=== PATIENT | female | born 1960 | race Caucasian/White ===

== ENCOUNTER 2021-04-26 11:35 | Inpatient (IN) ==
[~2021-04-26 11:35] MED LIST: IVERMECTIN 3 MG TABLET PO SCH
[2021-04-26 12:45] LABS: Basophils % 0.3 % (0.0-0.8); Hematocrit 43.8 VOL% (35.7-47.0); Hemoglobin 14.8 GM/DL (12.0-16.0); Immature Granulocytes % 0.5 %; Immature Granulocytes Absolute 0.03 #; Lymphocytes % 14.8 % (21.3-54.2); Mean Corpuscular HGB Conc 33.8 GM/DL (32-36); Mean Platelet Volume 10.8 FL (9.6-12.0); Monocytes % 7.8 % (1.7-12.7); Neutrophils % 76.6 % (38.7-73.9); Platelet Count 273 T/CUMM (130-400); Red Blood Count 4.66 MC/CUMM (3.8-5.5); Red Cell Distribution Width 12.3 % (9.3-17.3); White Blood Count 6.4 T/CUMM (4-12)
[2021-04-26 13:09] LABS: Band Neutrophils 2 % (0-10); Lymphocytes 15 % (20-55); Platelet Estimate Normal; Polychromasia Slight; Segmented Neutrophils 71 % (50-85); Total Cells Counted 100
[2021-04-26 13:10] LABS: Ovalocytes Few
[2021-04-26 13:19] LABS: Albumin 3.4 G/DL (3.4-5.0); Bilirubin,Total 0.4 MG/DL (0.20-1.00); Calcium 9.3 MG/DL (8.5-10.1); Ferritin 516.2 ng/ml (8-252); Osmolality,Calculated 269.2 MOS/KG (273-304); Potassium 3.5 MMOL/L (3.5-5.1); Total Protein 8.2 G/DL (6.4-8.2)
[2021-04-26] MEDS ORDERED: GLUCAGON 1 MG VIAL IM PRN (14:31)
[2021-04-26] MEDS ORDERED: ONDANSETRON 4 MG/2 ML VIAL IV PRN (14:31)
[2021-04-26] MEDS ORDERED: ACETAMINOPHEN 325 MG TABLET PO PRN (14:31)
[2021-04-26] MEDS ORDERED: DEXTROSE 50% 25 GM/50 ML VIAL IV PRN (14:31)
[2021-04-26] MEDS ORDERED: DOCUSATE SODIUM 100 MG CAPSULE PO PRN (14:31)
[2021-04-26] MEDS ORDERED: hydrALAZINE 20 MG/1 ML VIAL IV PRN (14:31)
[2021-04-26] MEDS: DEXAMETHASONE 4 MG/1 ML VIAL IV SCH (14:35)
[2021-04-26] MEDS ORDERED: AZITHROMYCIN INJ 500 MG in SODIUM CHLORIDE 0.9% 250 ML IV ONE (14:36)
[2021-04-26 14:56] LABS: PT Patient Result 11.1 SECS (10.5-12.0)
[2021-04-26] MEDS: ENOXAPARIN 40 MG/0.4 ML SYRINGE SUBCUT SCH (14:57)
[2021-04-26] MEDS: cefTRIAXone 1,000 MG in SODIUM CHLORIDE 0.9% 100 ML IV SCH (16:24)
[2021-04-26] MEDS: guaiFENesin/DM ER 600-30 MG TABLET PO SCH (21:43)
[2021-04-26] MEDS: FAMOTIDINE 20 MG TABLET PO SCH (21:43)
[2021-04-26] MEDS: ASCORBIC ACID 500 MG TABLET PO SCH (21:43)
[2021-04-27 05:04] LABS: Basophils % 0.2 % (0.0-0.8); Hematocrit 40.8 VOL% (35.7-47.0); Hemoglobin 13.7 GM/DL (12.0-16.0); Immature Granulocytes % 0.5 %; Immature Granulocytes Absolute 0.02 #; Lymphocytes # 1.1 10*3/uL (1.4-4.0); Lymphocytes % 26.4 % (21.3-54.2); Mean Corpuscular HGB Conc 33.6 GM/DL (32-36); Mean Corpuscular Volume 93.2 FL (87-102); Mean Platelet Volume 10.8 FL (9.6-12.0); Monocytes % 10.2 % (1.7-12.7); Neutrophils % 62.7 % (38.7-73.9); Platelet Count 287 T/CUMM (130-400); Red Blood Count 4.38 MC/CUMM (3.8-5.5); Red Cell Distribution Width 12.1 % (9.3-17.3); White Blood Count 4.1 T/CUMM (4-12)
[2021-04-27 05:33] LABS: Hypochromasia 1+; Microcytosis Slight; Platelet Estimate Normal
[2021-04-27 05:41] LABS: Ferritin 536.1 ng/ml (8-252)
[2021-04-27 05:46] LABS: Calcium 8.8 MG/DL (8.5-10.1); Osmolality,Calculated 272.2 MOS/KG (273-304); Potassium 3.6 MMOL/L (3.5-5.1); Risk Ratio 4.11; Thyroid Stimulating Hormone 0.427 uIU/ml (0.358-3.74)
[2021-04-27] MEDS: ASCORBIC ACID 500 MG TABLET PO SCH ×2 (10:04→21:25)
[2021-04-27] MEDS: guaiFENesin/DM ER 600-30 MG TABLET PO SCH ×2 (10:04→21:25)
[2021-04-27] MEDS: FAMOTIDINE 20 MG TABLET PO SCH ×2 (10:04→21:25)
[2021-04-27] MEDS: CHOLECALCIFEROL 1,000 UNIT TABLET PO SCH (10:04)
[2021-04-27] MEDS: ZINC GLUCONATE 50 MG TABLET PO SCH (10:04)
[2021-04-27] MEDS: DEXAMETHASONE 4 MG/1 ML VIAL IV SCH (10:05)
[2021-04-27] MEDS ORDERED: REMDESIVIR 200 MG in SODIUM CHLORIDE 0.9% 210 ML IV ONE (11:00)
[2021-04-27] MEDS: ENOXAPARIN 40 MG/0.4 ML SYRINGE SUBCUT SCH (15:24)
[2021-04-27] MEDS: cefTRIAXone 1,000 MG in SODIUM CHLORIDE 0.9% 100 ML IV SCH (15:24)
[2021-04-27] MEDS: clonazePAM 0.5 MG TABLET PO PRN (21:30)
[2021-04-28 03:50] LABS: Allen Test Positive; Pt O2 Delivery Device Other
[2021-04-28 03:52] LABS: ABG Base Excess 5.4 MMOL/L (-2.5-2.5); ABG HCO3 29.1 MMOL/L (20-26); ABG Oxygen Saturation 90.7 % (95-100); ABG PCO2 36.9 MM HG (35-48); ABG PH 7.498 (7.35-7.45); ABG TCO2 24.5 MMOL/L (23-27)
[2021-04-28 05:15] LABS: Basophils % 0.1 % (0.0-0.8); Hematocrit 40.1 VOL% (35.7-47.0); Hemoglobin 13.7 GM/DL (12.0-16.0); Immature Granulocytes % 0.8 %; Lymphocytes # 1.7 10*3/uL (1.4-4.0); Lymphocytes % 14.2 % (21.3-54.2); Mean Corpuscular HGB Conc 34.2 GM/DL (32-36); Mean Corpuscular Volume 92.6 FL (87-102); Mean Platelet Volume 11.2 FL (9.6-12.0); Monocytes % 8.4 % (1.7-12.7); Neutrophils % 76.5 % (38.7-73.9); Platelet Count 358 T/CUMM (130-400); Red Blood Count 4.33 MC/CUMM (3.8-5.5); Red Cell Distribution Width 11.9 % (9.3-17.3); White Blood Count 11.8 T/CUMM (4-12)
[2021-04-28 05:37] LABS: Calcium 8.9 MG/DL (8.5-10.1); Osmolality,Calculated 273.4 MOS/KG (273-304); Potassium 3.2 MMOL/L (3.5-5.1)
[2021-04-28 05:41] LABS: Ferritin 513.3 ng/ml (8-252)
[2021-04-28] MEDS ORDERED: POTASSIUM CHLORIDE 20 MEQ TABLET PO ONE (07:05)
[2021-04-28] MEDS: ASCORBIC ACID 500 MG TABLET PO SCH ×2 (10:48→20:44)
[2021-04-28] MEDS: ZINC GLUCONATE 50 MG TABLET PO SCH (10:48)
[2021-04-28] MEDS: FAMOTIDINE 20 MG TABLET PO SCH ×2 (10:48→20:44)
[2021-04-28] MEDS: CHOLECALCIFEROL 1,000 UNIT TABLET PO SCH (10:48)
[2021-04-28] MEDS: guaiFENesin/DM ER 600-30 MG TABLET PO SCH ×2 (10:49→20:44)
[2021-04-28] MEDS: DEXAMETHASONE 4 MG/1 ML VIAL IV SCH (10:52)
[2021-04-28] MEDS: REMDESIVIR 100 MG in SODIUM CHLORIDE 0.9% 100 ML IV SCH (11:47)
[2021-04-28] MEDS: cefTRIAXone 1,000 MG in SODIUM CHLORIDE 0.9% 100 ML IV SCH (15:37)
[2021-04-28] MEDS: ENOXAPARIN 40 MG/0.4 ML SYRINGE SUBCUT SCH (15:38)
[2021-04-28] MEDS: clonazePAM 0.5 MG TABLET PO PRN ×2 (15:41→22:27)
[2021-04-29 05:05] LABS: Basophils % 0.2 % (0.0-0.8); Hematocrit 40.5 VOL% (35.7-47.0); Immature Granulocytes % 0.8 %; Immature Granulocytes Absolute 0.09 #; Lymphocytes # 1.8 10*3/uL (1.4-4.0); Lymphocytes % 14.9 % (21.3-54.2); Mean Corpuscular HGB Conc 34.6 GM/DL (32-36); Mean Corpuscular Volume 93.5 FL (87-102); Mean Platelet Volume 10.7 FL (9.6-12.0); Neutrophils % 73.1 % (38.7-73.9); Platelet Count 318 T/CUMM (130-400); Red Blood Count 4.33 MC/CUMM (3.8-5.5); Red Cell Distribution Width 12.2 % (9.3-17.3); White Blood Count 11.9 T/CUMM (4-12)
[2021-04-29 05:34] LABS: Calcium 8.9 MG/DL (8.5-10.1); Osmolality,Calculated 284.5 MOS/KG (273-304); Potassium 3.6 MMOL/L (3.5-5.1)
[2021-04-29 05:40] LABS: Ferritin 449.1 ng/ml (8-252)
[2021-04-29] MEDS: DEXAMETHASONE 4 MG/1 ML VIAL IV SCH (08:29)
[2021-04-29] MEDS: FAMOTIDINE 20 MG TABLET PO SCH ×2 (08:30→21:30)
[2021-04-29] MEDS: ZINC GLUCONATE 50 MG TABLET PO SCH (08:30)
[2021-04-29] MEDS: AZITHROMYCIN 250 MG TABLET PO SCH (08:30)
[2021-04-29] MEDS: CHOLECALCIFEROL 1,000 UNIT TABLET PO SCH (08:30)
[2021-04-29] MEDS: ASCORBIC ACID 500 MG TABLET PO SCH ×2 (08:30→21:30)
[2021-04-29] MEDS: guaiFENesin/DM ER 600-30 MG TABLET PO SCH ×2 (08:30→21:30)
[2021-04-29] MEDS: REMDESIVIR 100 MG in SODIUM CHLORIDE 0.9% 100 ML IV SCH (09:33)
[2021-04-29] MEDS: ENOXAPARIN 40 MG/0.4 ML SYRINGE SUBCUT SCH (14:59)
[2021-04-29] MEDS: cefTRIAXone 1,000 MG in SODIUM CHLORIDE 0.9% 100 ML IV SCH (15:00)
[2021-04-29] MEDS: clonazePAM 0.5 MG TABLET PO PRN (18:32)
[2021-04-29] MEDS ORDERED: SODIUM CHLORIDE 0.65% NASAL SPRAY 45 ML BOTTLE BOTH NARES PRN (20:40)
[2021-04-30 06:06] LABS: Basophils % 0.2 % (0.0-0.8); Hematocrit 38.7 VOL% (35.7-47.0); Immature Granulocytes % 0.9 %; Lymphocytes % 17.6 % (21.3-54.2); Mean Corpuscular HGB Conc 33.6 GM/DL (32-36); Mean Corpuscular Volume 95.3 FL (87-102); Mean Platelet Volume 11.3 FL (9.6-12.0); Monocytes % 10.3 % (1.7-12.7); Platelet Count 412 T/CUMM (130-400); Red Blood Count 4.06 MC/CUMM (3.8-5.5); Red Cell Distribution Width 12.1 % (9.3-17.3); White Blood Count 11.6 T/CUMM (4-12)
[2021-04-30 06:28] LABS: Hypochromasia Slight; Lymphocytes 14 % (20-55); Microcytosis Slight; Platelet Estimate Adequate; Segmented Neutrophils 80 % (50-85); Total Cells Counted 100
[2021-04-30 06:32] LABS: Albumin 2.4 G/DL (3.4-5.0); Bilirubin,Total 0.4 MG/DL (0.20-1.00); Calcium 8.7 MG/DL (8.5-10.1); Ferritin 375.1 ng/ml (8-252); Osmolality,Calculated 281.5 MOS/KG (273-304); Potassium 3.6 MMOL/L (3.5-5.1); Total Protein 6.2 G/DL (6.4-8.2)
[2021-04-30 07:32] LABS: Sedimentation Rate-Westergren 69 MM/HR (0-30)
[2021-04-30] MEDS: ASCORBIC ACID 500 MG TABLET PO SCH ×2 (08:57→21:09)
[2021-04-30] MEDS: AZITHROMYCIN 250 MG TABLET PO SCH (08:57)
[2021-04-30] MEDS: guaiFENesin/DM ER 600-30 MG TABLET PO SCH ×2 (08:58→21:09)
[2021-04-30] MEDS: ZINC GLUCONATE 50 MG TABLET PO SCH (08:58)
[2021-04-30] MEDS: FAMOTIDINE 20 MG TABLET PO SCH ×2 (08:58→21:08)
[2021-04-30] MEDS: CHOLECALCIFEROL 1,000 UNIT TABLET PO SCH (08:58)
[2021-04-30] MEDS: DEXAMETHASONE 4 MG/1 ML VIAL IV SCH (08:58)
[2021-04-30] MEDS: REMDESIVIR 100 MG in SODIUM CHLORIDE 0.9% 100 ML IV SCH (12:36)
[2021-04-30] MEDS: ENOXAPARIN 40 MG/0.4 ML SYRINGE SUBCUT SCH (17:02)
[2021-04-30] MEDS: cefTRIAXone 1,000 MG in SODIUM CHLORIDE 0.9% 100 ML IV SCH (17:02)
[2021-04-30] MEDS: clonazePAM 0.5 MG TABLET PO PRN (21:08)
[2021-05-01 05:51] LABS: Basophils % 0.1 % (0.0-0.8); Hematocrit 39.8 VOL% (35.7-47.0); Hemoglobin 13.2 GM/DL (12.0-16.0); Immature Granulocytes % 0.9 %; Immature Granulocytes Absolute 0.14 #; Lymphocytes # 2.1 10*3/uL (1.4-4.0); Lymphocytes % 13.4 % (21.3-54.2); Mean Corpuscular HGB Conc 33.2 GM/DL (32-36); Mean Corpuscular Volume 94.5 FL (87-102); Mean Platelet Volume 11.3 FL (9.6-12.0); Monocytes % 8.2 % (1.7-12.7); Neutrophils % 77.4 % (38.7-73.9); Platelet Count 414 T/CUMM (130-400); Red Blood Count 4.21 MC/CUMM (3.8-5.5); Red Cell Distribution Width 11.9 % (9.3-17.3); White Blood Count 15.6 T/CUMM (4-12)
[2021-05-01 06:09] LABS: Albumin 2.1 G/DL (3.4-5.0); Bilirubin,Total 0.4 MG/DL (0.20-1.00); Calcium 8.6 MG/DL (8.5-10.1); Ferritin 357.8 ng/mL (8-252); Potassium 4.1 MMOL/L (3.5-5.1); Total Protein 6.2 G/DL (6.4-8.2)
[2021-05-01 06:13] LABS: Hypochromasia Slight
[2021-05-01 06:14] LABS: Microcytosis Slight; Platelet Estimate Increased
[2021-05-01 07:13] LABS: Sedimentation Rate-Westergren 60 MM/HR (0-30)
[2021-05-01] MEDS: CHOLECALCIFEROL 1,000 UNIT TABLET PO SCH (09:01)
[2021-05-01] MEDS: ASCORBIC ACID 500 MG TABLET PO SCH ×2 (09:02→20:36)
[2021-05-01] MEDS: AZITHROMYCIN 250 MG TABLET PO SCH (09:02)
[2021-05-01] MEDS: guaiFENesin/DM ER 600-30 MG TABLET PO SCH ×2 (09:02→20:36)
[2021-05-01] MEDS: FAMOTIDINE 20 MG TABLET PO SCH ×2 (09:02→20:36)
[2021-05-01] MEDS: DEXAMETHASONE 4 MG/1 ML VIAL IV SCH (09:02)
[2021-05-01] MEDS: ZINC GLUCONATE 50 MG TABLET PO SCH (09:02)
[2021-05-01] MEDS: clonazePAM 0.5 MG TABLET PO PRN ×2 (09:43→20:36)
[2021-05-01] MEDS: REMDESIVIR 100 MG in SODIUM CHLORIDE 0.9% 100 ML IV SCH (09:43)
[2021-05-01] MEDS: cefTRIAXone 1,000 MG in SODIUM CHLORIDE 0.9% 100 ML IV SCH (15:40)
[2021-05-01] MEDS: ENOXAPARIN 40 MG/0.4 ML SYRINGE SUBCUT SCH (15:41)
[2021-05-02] MEDS: clonazePAM 0.5 MG TABLET PO PRN ×3 (03:52→21:52)
[2021-05-02 05:54] LABS: Basophils % 0.2 % (0.0-0.8); Eosinophils % 0.1 % (0.00-10.9); Hematocrit 38.1 VOL% (35.7-47.0); Immature Granulocytes % 0.9 %; Immature Granulocytes Absolute 0.16 #; Mean Corpuscular HGB Conc 34.1 GM/DL (32-36); Mean Corpuscular Volume 93.8 FL (87-102); Monocytes % 8.2 % (1.7-12.7); Neutrophils % 79.6 % (38.7-73.9); Platelet Count 402 T/CUMM (130-400); Red Blood Count 4.06 MC/CUMM (3.8-5.5); Red Cell Distribution Width 12.1 % (9.3-17.3); White Blood Count 17.8 T/CUMM (4-12)
[2021-05-02 06:35] LABS: Albumin 2.2 G/DL (3.4-5.0); Bilirubin,Total 0.8 MG/DL (0.20-1.00); Calcium 8.6 MG/DL (8.5-10.1); Ferritin 377.1 ng/mL (8-252); Osmolality,Calculated 274.8 MOS/KG (273-304); Potassium 3.5 MMOL/L (3.5-5.1); Total Protein 6.2 G/DL (6.4-8.2)
[2021-05-02 07:45] LABS: Sedimentation Rate-Westergren 71 MM/HR (0-30)
[2021-05-02] MEDS: ASCORBIC ACID 500 MG TABLET PO SCH ×2 (08:47→21:51)
[2021-05-02] MEDS: guaiFENesin/DM ER 600-30 MG TABLET PO SCH ×2 (08:47→21:51)
[2021-05-02] MEDS: CHOLECALCIFEROL 1,000 UNIT TABLET PO SCH (08:47)
[2021-05-02] MEDS: ZINC GLUCONATE 50 MG TABLET PO SCH (08:47)
[2021-05-02] MEDS: DEXAMETHASONE 4 MG/1 ML VIAL IV SCH (08:47)
[2021-05-02] MEDS: AZITHROMYCIN 250 MG TABLET PO SCH (08:47)
[2021-05-02] MEDS: FAMOTIDINE 20 MG TABLET PO SCH ×2 (08:47→21:51)
[2021-05-02] MEDS: REMDESIVIR 100 MG in SODIUM CHLORIDE 0.9% 100 ML IV SCH (10:20)
[2021-05-02 11:19] LABS: Bacteria,Urine Occasional /HPF (Few); Bilirubin,Urine Negative (Negative); Blood, Urine Negative (Negative); Glucose,Urine (UA) >=500 mg/dL (Negative); Ketones,Urine Negative (Negative); Mucus,Urine Moderate /LPF (Occasional); Nitrite,Urine Negative (Negative); Protein,Urine Negative; RBC,Urine 3 /HPF (0-4); Squamous Epithelial Cell,Urine Occasional /HPF (0-10); Urine Appearance CLEAR (Clear); Urine Color Yellow (Yellow); Urine Specific Gravity 1.021 (1.001-1.035); Urine Urobilinogen < 2.0 EU/DL (0.2-1.0)
[2021-05-02] MEDS: ENOXAPARIN 40 MG/0.4 ML SYRINGE SUBCUT SCH (15:01)
[2021-05-02] MEDS: cefTRIAXone 1,000 MG in SODIUM CHLORIDE 0.9% 100 ML IV SCH (15:01)
[2021-05-02] MEDS: MELATONIN 3 MG TABLET PO PRN (21:52)
[2021-05-03 05:05] LABS: ABG Base Excess 2.9 MMOL/L (-2.5-2.5); ABG Oxygen Saturation 96.4 % (95-100); ABG PO2 85.7 MM HG (80-95); ABG TCO2 23.9 MMOL/L (23-27)
[2021-05-03 05:13] LABS: Basophils % 0.1 % (0.0-0.8); Eosinophils % 0.2 % (0.00-10.9); Hematocrit 38.8 VOL% (35.7-47.0); Hemoglobin 13.1 GM/DL (12.0-16.0); Immature Granulocytes % 1.1 %; Immature Granulocytes Absolute 0.21 #; Lymphocytes # 1.9 10*3/uL (1.4-4.0); Lymphocytes % 9.5 % (21.3-54.2); Mean Corpuscular HGB Conc 33.8 GM/DL (32-36); Mean Corpuscular Volume 93.3 FL (87-102); Mean Platelet Volume 11.1 FL (9.6-12.0); Monocytes % 9.1 % (1.7-12.7); Platelet Count 382 T/CUMM (130-400); Red Blood Count 4.16 MC/CUMM (3.8-5.5); Red Cell Distribution Width 12.1 % (9.3-17.3); White Blood Count 19.7 T/CUMM (4-12)
[2021-05-03 05:37] LABS: Albumin 2.1 G/DL (3.4-5.0); Bilirubin,Total 0.6 MG/DL (0.20-1.00); Calcium 8.5 MG/DL (8.5-10.1); Ferritin 388.5 ng/mL (8-252); Osmolality,Calculated 274.8 MOS/KG (273-304); Potassium 3.8 MMOL/L (3.5-5.1); Total Protein 6.1 G/DL (6.4-8.2)
[2021-05-03 06:00] LABS: Hypochromasia 1+
[2021-05-03 06:01] LABS: Microcytosis Slight; Platelet Estimate Normal
[2021-05-03 06:43] LABS: Sedimentation Rate-Westergren 66 MM/HR (0-30)
[2021-05-03] MEDS ORDERED: AZITHROMYCIN INJ 500 MG in SODIUM CHLORIDE 0.9% 250 ML IV SCH (07:30)
[2021-05-03] MEDS: DEXAMETHASONE 4 MG/1 ML VIAL IV SCH (08:16)
[2021-05-03] MEDS: FAMOTIDINE 20 MG TABLET PO SCH ×2 (08:16→21:56)
[2021-05-03] MEDS: CHOLECALCIFEROL 1,000 UNIT TABLET PO SCH (08:17)
[2021-05-03] MEDS: ZINC GLUCONATE 50 MG TABLET PO SCH (08:17)
[2021-05-03] MEDS: ASCORBIC ACID 500 MG TABLET PO SCH ×2 (08:17→21:56)
[2021-05-03] MEDS: guaiFENesin/DM ER 600-30 MG TABLET PO SCH ×2 (08:17→21:55)
[2021-05-03] MEDS: REMDESIVIR 100 MG in SODIUM CHLORIDE 0.9% 100 ML IV SCH (10:30)
[2021-05-03] MEDS: clonazePAM 0.5 MG TABLET PO PRN ×2 (15:39→21:56)
[2021-05-03] MEDS: ENOXAPARIN 40 MG/0.4 ML SYRINGE SUBCUT SCH (15:40)
[2021-05-03] MEDS: cefTRIAXone 1,000 MG in SODIUM CHLORIDE 0.9% 100 ML IV SCH (15:40)
[2021-05-03] MEDS: MELATONIN 3 MG TABLET PO PRN (21:55)
[2021-05-04 05:51] LABS: Basophils % 0.1 % (0.0-0.8); Eosinophils % 0.1 % (0.00-10.9); Hematocrit 38.1 VOL% (35.7-47.0); Hemoglobin 12.9 GM/DL (12.0-16.0); Immature Granulocytes % 1.2 %; Immature Granulocytes Absolute 0.19 #; Lymphocytes # 1.3 10*3/uL (1.4-4.0); Lymphocytes % 8.3 % (21.3-54.2); Mean Corpuscular HGB Conc 33.9 GM/DL (32-36); Mean Corpuscular Volume 94.3 FL (87-102); Monocytes % 9.5 % (1.7-12.7); Neutrophils % 80.8 % (38.7-73.9); Platelet Count 399 T/CUMM (130-400); Red Blood Count 4.04 MC/CUMM (3.8-5.5); Red Cell Distribution Width 11.9 % (9.3-17.3); White Blood Count 16.1 T/CUMM (4-12)
[2021-05-04 06:25] LABS: Albumin 2.1 G/DL (3.4-5.0); Bilirubin,Total 1.6 MG/DL (0.20-1.00); Calcium 8.4 MG/DL (8.5-10.1); Ferritin 411.9 ng/mL (8-252); Osmolality,Calculated 277.7 MOS/KG (273-304); Potassium 3.9 MMOL/L (3.5-5.1); Total Protein 5.9 G/DL (6.4-8.2)
[2021-05-04 07:12] LABS: Sedimentation Rate-Westergren 80 MM/HR (0-30)
[2021-05-04] MEDS: ZINC GLUCONATE 50 MG TABLET PO SCH (09:10)
[2021-05-04] MEDS: ASCORBIC ACID 500 MG TABLET PO SCH ×2 (09:11→20:55)
[2021-05-04] MEDS: AZITHROMYCIN 250 MG TABLET PO SCH (09:12)
[2021-05-04] MEDS: FAMOTIDINE 20 MG TABLET PO SCH ×2 (09:12→20:55)
[2021-05-04] MEDS: guaiFENesin/DM ER 600-30 MG TABLET PO SCH ×2 (09:12→20:56)
[2021-05-04] MEDS: CHOLECALCIFEROL 1,000 UNIT TABLET PO SCH (09:13)
[2021-05-04] MEDS: DEXAMETHASONE 4 MG/1 ML VIAL IV SCH (09:14)
[2021-05-04] MEDS: REMDESIVIR 100 MG in SODIUM CHLORIDE 0.9% 100 ML IV SCH (12:58)
[2021-05-04] MEDS: DESITIN 4OZ/NYSTATIN 15 GRAM MIXTURE PASTE TOP SCH ×2 (12:58→21:48)
[2021-05-04] MEDS: ENOXAPARIN 40 MG/0.4 ML SYRINGE SUBCUT SCH (14:37)
[2021-05-04] MEDS: clonazePAM 0.5 MG TABLET PO PRN (20:55)
[2021-05-05 05:49] LABS: Basophils % 0.1 % (0.0-0.8); Eosinophils % 0.2 % (0.00-10.9); Hematocrit 38.7 VOL% (35.7-47.0); Immature Granulocytes % 1.2 %; Lymphocytes # 1.6 10*3/uL (1.4-4.0); Lymphocytes % 9.8 % (21.3-54.2); Mean Corpuscular HGB Conc 33.6 GM/DL (32-36); Mean Corpuscular Volume 94.4 FL (87-102); Mean Platelet Volume 11.1 FL (9.6-12.0); Monocytes % 10.4 % (1.7-12.7); Neutrophils % 78.3 % (38.7-73.9); Platelet Count 399 T/CUMM (130-400); Red Cell Distribution Width 11.9 % (9.3-17.3); White Blood Count 16.6 T/CUMM (4-12)
[2021-05-05 06:15] LABS: Albumin 2.2 G/DL (3.4-5.0); Bilirubin,Total 0.9 MG/DL (0.20-1.00); Calcium 8.8 MG/DL (8.5-10.1); Ferritin 377.7 ng/mL (8-252); Osmolality,Calculated 274.8 MOS/KG (273-304); Potassium 4.4 MMOL/L (3.5-5.1)
[2021-05-05 07:13] LABS: Sedimentation Rate-Westergren 79 MM/HR (0-30)
[2021-05-05] MEDS: DEXAMETHASONE 4 MG/1 ML VIAL IV SCH (09:42)
[2021-05-05] MEDS: ZINC GLUCONATE 50 MG TABLET PO SCH (09:43)
[2021-05-05] MEDS: ASCORBIC ACID 500 MG TABLET PO SCH ×2 (09:43→20:37)
[2021-05-05] MEDS: guaiFENesin/DM ER 600-30 MG TABLET PO SCH ×2 (09:43→20:37)
[2021-05-05] MEDS: AZITHROMYCIN 250 MG TABLET PO SCH (09:43)
[2021-05-05] MEDS: CHOLECALCIFEROL 1,000 UNIT TABLET PO SCH (09:43)
[2021-05-05] MEDS: valACYclovir 500 MG TABLET PO SCH (09:43)
[2021-05-05] MEDS: FAMOTIDINE 20 MG TABLET PO SCH ×2 (09:43→20:38)
[2021-05-05] MEDS: DESITIN 4OZ/NYSTATIN 15 GRAM MIXTURE PASTE TOP SCH ×2 (09:44→20:44)
[2021-05-05] MEDS: REMDESIVIR 100 MG in SODIUM CHLORIDE 0.9% 100 ML IV SCH (14:12)
[2021-05-05] MEDS: ENOXAPARIN 40 MG/0.4 ML SYRINGE SUBCUT SCH (14:12)
[2021-05-05] MEDS: ESTROGENS (CONJ) 0.625 MG TABLET PO SCH (14:12)
[2021-05-05] MEDS: clonazePAM 0.5 MG TABLET PO PRN ×2 (14:12→20:38)
[2021-05-06 05:20] LABS: Basophils % 0.1 % (0.0-0.8); Eosinophils % 0.2 % (0.00-10.9); Hematocrit 37.2 VOL% (35.7-47.0); Immature Granulocytes % 1.2 %; Immature Granulocytes Absolute 0.17 #; Lymphocytes # 2.3 10*3/uL (1.4-4.0); Lymphocytes % 16.9 % (21.3-54.2); Mean Corpuscular HGB Conc 34.9 GM/DL (32-36); Mean Corpuscular Volume 91.9 FL (87-102); Monocytes % 11.2 % (1.7-12.7); Neutrophils % 70.4 % (38.7-73.9); Platelet Count 361 T/CUMM (130-400); Red Blood Count 4.05 MC/CUMM (3.8-5.5); Red Cell Distribution Width 11.9 % (9.3-17.3); White Blood Count 13.7 T/CUMM (4-12)
[2021-05-06 05:47] LABS: Albumin 2.2 G/DL (3.4-5.0); Bilirubin,Total 1.5 MG/DL (0.20-1.00); Calcium 8.5 MG/DL (8.5-10.1); Ferritin 357.5 ng/mL (8-252); Osmolality,Calculated 274.8 MOS/KG (273-304); Potassium 3.6 MMOL/L (3.5-5.1); Total Protein 5.9 G/DL (6.4-8.2)
[2021-05-06 07:05] LABS: Platelet Estimate Normal
[2021-05-06 07:06] LABS: Anisocytosis 1+; Macrocytosis Slight
[2021-05-06 07:27] LABS: Sedimentation Rate-Westergren 66 MM/HR (0-30)
[2021-05-06] MEDS: CHOLECALCIFEROL 1,000 UNIT TABLET PO SCH (08:37)
[2021-05-06] MEDS: AZITHROMYCIN 250 MG TABLET PO SCH (08:38)
[2021-05-06] MEDS: guaiFENesin/DM ER 600-30 MG TABLET PO SCH ×2 (08:38→21:14)
[2021-05-06] MEDS: ASCORBIC ACID 500 MG TABLET PO SCH ×2 (08:38→21:14)
[2021-05-06] MEDS: FAMOTIDINE 20 MG TABLET PO SCH ×2 (08:38→20:39)
[2021-05-06] MEDS: ZINC GLUCONATE 50 MG TABLET PO SCH (08:38)
[2021-05-06] MEDS: valACYclovir 500 MG TABLET PO SCH (08:38)
[2021-05-06] MEDS: ESTROGENS (CONJ) 0.625 MG TABLET PO SCH (08:45)
[2021-05-06] MEDS: DESITIN 4OZ/NYSTATIN 15 GRAM MIXTURE PASTE TOP SCH ×2 (08:45→21:14)
[2021-05-06] MEDS: clonazePAM 0.5 MG TABLET PO PRN ×2 (09:02→20:39)
[2021-05-06] MEDS: REMDESIVIR 100 MG in SODIUM CHLORIDE 0.9% 100 ML IV SCH (09:44)
[2021-05-06] MEDS: ENOXAPARIN 40 MG/0.4 ML SYRINGE SUBCUT SCH (15:07)
[2021-05-07 05:03] LABS: Basophils % 0.1 % (0.0-0.8); Eosinophils # 0.3 10*3/uL (0.0-0.87); Eosinophils % 2.1 % (0.00-10.9); Hematocrit 37.9 VOL% (35.7-47.0); Hemoglobin 12.8 GM/DL (12.0-16.0); Immature Granulocytes % 1.1 %; Immature Granulocytes Absolute 0.15 #; Lymphocytes % 29.1 % (21.3-54.2); Mean Corpuscular HGB Conc 33.8 GM/DL (32-36); Mean Corpuscular Volume 93.6 FL (87-102); Mean Platelet Volume 11.2 FL (9.6-12.0); Monocytes % 12.1 % (1.7-12.7); Neutrophils % 55.5 % (38.7-73.9); Platelet Count 345 T/CUMM (130-400); Red Blood Count 4.05 MC/CUMM (3.8-5.5); Red Cell Distribution Width 12.1 % (9.3-17.3); White Blood Count 13.6 T/CUMM (4-12)
[2021-05-07 05:34] LABS: Albumin 2.1 G/DL (3.4-5.0); Bilirubin,Total 0.6 MG/DL (0.20-1.00); Calcium 8.2 MG/DL (8.5-10.1); Ferritin 352.5 ng/mL (8-252); Osmolality,Calculated 279.5 MOS/KG (273-304); Potassium 3.9 MMOL/L (3.5-5.1); Total Protein 5.4 G/DL (6.4-8.2)
[2021-05-07 07:06] LABS: Sedimentation Rate-Westergren 57 MM/HR (0-30)
[2021-05-07] MEDS: guaiFENesin/DM ER 600-30 MG TABLET PO SCH ×2 (10:20→22:44)
[2021-05-07] MEDS: ASCORBIC ACID 500 MG TABLET PO SCH ×2 (10:20→22:44)
[2021-05-07] MEDS: ESTROGENS (CONJ) 0.625 MG TABLET PO SCH (10:20)
[2021-05-07] MEDS: valACYclovir 500 MG TABLET PO SCH (10:20)
[2021-05-07] MEDS: ZINC GLUCONATE 50 MG TABLET PO SCH (10:20)
[2021-05-07] MEDS: CHOLECALCIFEROL 1,000 UNIT TABLET PO SCH (10:21)
[2021-05-07] MEDS: FAMOTIDINE 20 MG TABLET PO SCH ×2 (10:21→22:44)
[2021-05-07] MEDS: AZITHROMYCIN 250 MG TABLET PO SCH (10:21)
[2021-05-07] MEDS: ENOXAPARIN 40 MG/0.4 ML SYRINGE SUBCUT SCH (16:26)
[2021-05-07] MEDS: DESITIN 4OZ/NYSTATIN 15 GRAM MIXTURE PASTE TOP SCH ×2 (17:40→22:44)
[2021-05-07] MEDS: clonazePAM 0.5 MG TABLET PO PRN (22:43)
[2021-05-08 05:03] LABS: Basophils % 0.2 % (0.0-0.8); Eosinophils # 0.2 10*3/uL (0.0-0.87); Eosinophils % 1.8 % (0.00-10.9); Immature Granulocytes % 1.2 %; Immature Granulocytes Absolute 0.15 #; Lymphocytes # 3.1 10*3/uL (1.4-4.0); Lymphocytes % 24.4 % (21.3-54.2); Mean Corpuscular HGB Conc 33.3 GM/DL (32-36); Mean Corpuscular Volume 94.7 FL (87-102); Mean Platelet Volume 10.6 FL (9.6-12.0); Monocytes % 11.7 % (1.7-12.7); Neutrophils % 60.7 % (38.7-73.9); Platelet Count 349 T/CUMM (130-400); Red Cell Distribution Width 12.2 % (9.3-17.3); White Blood Count 12.6 T/CUMM (4-12)
[2021-05-08 05:25] LABS: Bilirubin,Total 1.2 MG/DL (0.20-1.00); Calcium 8.3 MG/DL (8.5-10.1); Osmolality,Calculated 278.5 MOS/KG (273-304); Potassium 3.9 MMOL/L (3.5-5.1); Total Protein 5.3 G/DL (6.4-8.2)
[2021-05-08 05:27] LABS: Hypochromasia 1+; Microcytosis 1+; Platelet Estimate Adequate
[2021-05-08] MEDS: ASCORBIC ACID 500 MG TABLET PO SCH ×2 (08:29→20:47)
[2021-05-08] MEDS: FAMOTIDINE 20 MG TABLET PO SCH ×2 (08:29→20:47)
[2021-05-08] MEDS: guaiFENesin/DM ER 600-30 MG TABLET PO SCH ×2 (08:29→20:47)
[2021-05-08] MEDS: ESTROGENS (CONJ) 0.625 MG TABLET PO SCH (08:29)
[2021-05-08] MEDS: AZITHROMYCIN 250 MG TABLET PO SCH (08:29)
[2021-05-08] MEDS: CHOLECALCIFEROL 1,000 UNIT TABLET PO SCH (08:29)
[2021-05-08] MEDS: ZINC GLUCONATE 50 MG TABLET PO SCH (08:30)
[2021-05-08] MEDS: valACYclovir 500 MG TABLET PO SCH (08:30)
[2021-05-08] MEDS: ENOXAPARIN 40 MG/0.4 ML SYRINGE SUBCUT SCH (10:21)
[2021-05-08] MEDS: DESITIN 4OZ/NYSTATIN 15 GRAM MIXTURE PASTE TOP SCH ×2 (10:44→21:09)
[2021-05-08] MEDS: clonazePAM 0.5 MG TABLET PO PRN (20:47)
[2021-05-09 06:38] LABS: Basophils % 0.2 % (0.0-0.8); Eosinophils # 0.2 10*3/uL (0.0-0.87); Eosinophils % 1.6 % (0.00-10.9); Hematocrit 37.6 VOL% (35.7-47.0); Hemoglobin 12.4 GM/DL (12.0-16.0); Immature Granulocytes Absolute 0.11 #; Lymphocytes # 2.8 10*3/uL (1.4-4.0); Mean Corpuscular Volume 96.2 FL (87-102); Mean Platelet Volume 10.8 FL (9.6-12.0); Monocytes % 12.1 % (1.7-12.7); Neutrophils % 59.1 % (38.7-73.9); Platelet Count 355 T/CUMM (130-400); Red Blood Count 3.91 MC/CUMM (3.8-5.5); Red Cell Distribution Width 12.6 % (9.3-17.3); White Blood Count 10.8 T/CUMM (4-12)
[2021-05-09 07:07] LABS: Calcium 8.2 MG/DL (8.5-10.1); Osmolality,Calculated 278.5 MOS/KG (273-304); Potassium 3.8 MMOL/L (3.5-5.1)
[2021-05-09] MEDS: guaiFENesin/DM ER 600-30 MG TABLET PO SCH (10:04)
[2021-05-09] MEDS: ESTROGENS (CONJ) 0.625 MG TABLET PO SCH (10:04)
[2021-05-09] MEDS: CHOLECALCIFEROL 1,000 UNIT TABLET PO SCH (10:04)
[2021-05-09] MEDS: ZINC GLUCONATE 50 MG TABLET PO SCH (10:05)
[2021-05-09] MEDS: AZITHROMYCIN 250 MG TABLET PO SCH (10:05)
[2021-05-09] MEDS: FAMOTIDINE 20 MG TABLET PO SCH (10:05)
[2021-05-09] MEDS: valACYclovir 500 MG TABLET PO SCH (10:05)
[2021-05-09] MEDS: ASCORBIC ACID 500 MG TABLET PO SCH (10:05)
[2021-05-09] MEDS: ENOXAPARIN 40 MG/0.4 ML SYRINGE SUBCUT SCH (10:11)
[2021-05-09] MEDS: DESITIN 4OZ/NYSTATIN 15 GRAM MIXTURE PASTE TOP SCH (10:11)
[2021-05-09 12:19] VITALS: BP 92/69
== END 2021-05-09 13:01 | disposition home health service (06) | DRG 177 ==
LOC: N.ED 11:35 → SUATTDRO 14:32 → N.EDINP 14:32 → N.2E 16:36 → N.5E 05-04 14:56
PROVIDERS: ADMIT Internal Medicine; ATTEND Internal Medicine